=== PATIENT | female | born 1940 ===

== ENCOUNTER 2019-09-28 12:38 | Outpatient (CLI) | payer MEDICARE, SELFPAY ==
--- NOTE | ~2019-09-28 | XR_ITS ---
EXAMINATION: XR lg joint inject/asp w image DATE: 09/28/2019 13:56 INDICATION: Left hip pain. TECHNIQUE: A time-out was performed to verify the patient's name, date of , and procedure to b e performed. The procedure including the risks, benefits, and alternatives was discussed with the pat ient. Risks discussed included bleeding and infection. The patient understood the risks and agreed to proceed. The skin overlying the left hip joint was prepped and draped in usual sterile fashion. An esthetic was administered with 1% lidocaine subcutaneously. A 22 G needle was advanced under fluoros copic guidance into the joint. Injection of 1 mL of Omnipaque 240 confirmed intra-articular position of the needle. Subsequently, injectate consisting of 3 mL 0.25% bupivacaine and 1.5 mL 10 mg/mL [place] alog was instilled. The needle was removed and the entry site was cleaned and dressed. There were n o immediate complications. Fluoroscopy exposure time was 0.1 minutes. The total number of images was 2. FINDINGS: Real-time fluoroscopy demonstrates the needle in the left hip joint. Patient's pain prior t o procedure:02/21. Patient's pain following the procedure: 12/21. IMPRESSION: 1. Left hip joint injection of local anesthetic and steroid with decrease in the patient's presenting pain. Reviewed, dictated and finalized at location A. IMPRESSION: 1. Left hip joint injection of local anesthetic and steroid with decrease in th e patient's presenting pain.
== END 2019-09-28 12:39 | disposition home or self-care (01) ==
PROVIDERS: PCP Internal Medicine; Visit Provider Orthopaedic Surgery
DX: M25.559 Pain in unspecified hip (principal)
CPT/HCPCS: 20610; 77002; J3301; Q9966

== ENCOUNTER 2020-07-17 07:35 | Inpatient (IN) | payer MEDICARE, SELFPAY ==
[2020-07-17 07:38] VITALS: BP 154/77; PULSE 88; RESP 18; TEMP 37.3; O2SAT 100
[2020-07-17 07:42] VITALS: PULSE 88
--- NOTE | 2020-07-17 07:54 | ECG_ITS ---
Measurements Intervals [place] Rate: 87 P: 31 DE: 154 QRS: 7 QRSD: 99 T: 106 QT: 352 QTc: 425 Interpretive Statements SINUS RHYTHM RSR' IN V1 OR V2, CONSIDER RIGHT VENTRICULAR HYPERTROPHY OR RIGHT VCD DELAYED PRECORDIAL R/S TRANSITION BORDERLINE T WAVE ABNORMALITY- ANTEROLAT/HIGH LAT LEADS BORDERLINE ECG Electronically Signed On 07-17-2020 9:00:12 CORPORATE LOGISTICS MANAGER by Percy Esposito D.O.
--- NOTE | 2020-07-17 08:10 | ED.GENADULT ---
HPI - General Adult General Chief complaint: Weakness Stated complaint: black stool weak Source: patient Mode of arrival: ambulatory History of Present Illness HPI narrative: Jesica is a 80F with a PMH of anxiety, BPPV, CVA with left sided paralysis, fibromyalgia, HTN, DMII, DJD and HLD that presented to the ED with 5-7 days of weakness. It started after she had several episodes of vomiting followed by a large episode of melena. She was feeling better but had another episode of melena yesterday. She also reports epigastric abdominal pain, fatigue, and insomnia. No CP, SOB, syncope, diarrhea, dysuria, hematuria or any trauma. Related Data Home Medications Medication Instructions Recorded Confirmed aspirin 81 mg tablet,delayed 81 mg PO DAILY 05/18/19 07/17/20 release folic acid 400 mcg tablet 0.4 mg PO DAILY 05/18/19 07/17/20 mecobalamin (vitamin B12) 1,000 1,000 mcg SUBLINGUAL DAILY 05/18/19 07/17/20 mcg disintegrating tablet,sublingual omega-3 fatty acids 1,000 mg 1,000 mg PO BID 05/18/19 07/17/20 capsule Allergies Allergy/AdvReac Type Severity Reaction Status Date / Time codeine Allergy Unknown n & V Verified 12/28/19 10:38 Penicillins Allergy Unknown rash Verified 12/28/19 10:38 Qehgkwc-Hle-Mco Reductase Allergy Unknown unknown Verified 12/28/19 10:38 Inhibitor Review of Systems Constitutional: Constitutional: Denies chills, Reports fatigue, Denies fever(s) and Reports weakness Eyes: Eyes: Reports no additional eye complaints ENT: Reports system reviewed and no additional complaints, except as documented Cardiovascular: Cardiovascular: Denies chest pain, Denies radiating jaw, neck or arm pain and Denies slow heart rate Respiratory: Respiratory: Reports no additional respiratory complaints, Denies cough and Denies dyspnea Gastrointestinal: Gastrointestinal: Reports as per HPI Genitourinary: Genitourinary: Reports no additional female genitourinary complaints Musculoskeletal: Musculoskeletal: Reports no additional musculoskeletal complaints Integumentary/Breasts: Skin/Breast: Reports system reviewed and no additional complaints, except as docu Neurologic: Reports system reviewed and no additional complaints, except as documented Psychiatric: Psychiatric: Reports no additional psychiatric complaints Endocrine: Endocrine: Reports no additional endocrine complaints Hematologic/Lymphatic: Hematologic/Lymphatic: Reports as per HPI Allergic/Immunologic: Allergic/Immunologic: Reports no additional allergic/immunologic complaints [facility] Past Medical History Medical History (Updated 07/17/20 @ 10:41 by Glenn Oswald DO) Anxiety with depression Benign essential hypertension BMI 34.0-34.9,adult Cervicalgia DJD (degenerative joint disease), multiple sites DM type 2 (diabetes mellitus, type 2) DVT (deep venous thrombosis) Elevated homocysteine Encounter for routine adult health examination without abnormal findings Epiretinal membrane (ERM) of left eye Fibromyalgia Hemiparesis affecting left side as late effect of cerebrovascular accident Hemorrhoids History of blood clots History of CVA with residual deficit History of stroke Hyperlipidemia On halfway drug therapy Oral phase dysphagia Preoperative clearance Vitamin D deficiency Surgical History Surgical History H/O: hysterectomy History of cholecystectomy History of hip replacement S/P right cataract extraction Family History Family History Sibling Family history of heart disease in male family member before age 55 Father Acute myocardial infarction Cerebrovascular accident Unknown Diabetes mellitus Heart disease Hypertension Other Family history of cardiovascular disease Social History Social History Smoking status: Never smoker Alcohol intake: n
[2020-07-17 08:20] LABS: Basophils Absolute Auto 0.01 K/mm3 (0.00-0.10); Basophils Percent Auto 0.1 % (0.0-1.0); Eosinophils Absolute Auto 0.16 K/mm3 (0.02-0.50); Eosinophils Percent Auto 2.1 % (1.0-6.0); Hematocrit 34.2 % (35.0-42.0); Hemoglobin 10.9 g/dL (11.7-13.8); Immature Granulocyte Absolute 0.04 K/mm3 (0.00-0.00); Immature Granulocyte Percent A 0.5 % (0.0-0.0); Lymphocytes Absolute Auto 1.41 K/mm3 (1.10-4.50); Lymphocytes Percent Auto 18.4 % (18.0-42.0); Mean Corpuscular HGB Conc 31.9 g/dL (32.0-36.0); Mean Corpuscular Hemoglobin 30.1 pg (27.0-31.0); Mean Corpuscular Volume 94.5 fL (78.0-102.0); Mean Platelet Volume 9.8 fl (9.2-11.8); Monocytes Absolute Auto 0.44 K/mm3 (0.10-0.90); Monocytes Percent Auto 5.8 % (2.0-11.0); Neutrophils Absolute Auto 5.6 K/mm3 (1.7-7.2); Neutrophils Percent Auto 73.1 % (50.0-70.0); Platelet Count Result 335 K/mm3 (150-420); Red Blood Count 3.62 M/mm3 (4.20-5.40); Red Cell Distribution Width 14.2 % (11.6-14.4); White Blood Count 7.7 K/mm3 (4.8-10.8)
[2020-07-17 08:30] LABS: Occult Blood Positive (Negative)
[2020-07-17 08:33] LABS: Prothrombin Time 10.7 Seconds (9.50-12.10)
[2020-07-17 08:38] LABS: Alanine Aminotransferase 15 U/L (14-59); Albumin Level 2.9 g/dL (3.4-5.0); Alkaline Phosphatase 45 U/L (46-116); Anion Gap 11 mmol/L (8-16); Aspartate Amino Transferase 12 U/L (15-37); Bilirubin,Total 0.4 mg/dL (0.00-1.00); Blood Urea Nitrogen 41 mg/dL (7-18); Calcium 8.2 mg/dL (8.5-10.1); Carbon Dioxide 26 mmol/L (21-32); Chloride 106 mmol/L (98-108); Estimated CRCL calculation 51 ml/min; Estimated Glomerular Filt Rate > 60; Glucose 141 mg/dL (70-99); Lipase 146 U/L (73-393); Osmolality Calculated 308 mOsm/kg (285-295); Sodium 143 mmol/L (136-145); Total Protein 6.4 g/dL (6.4-8.2); Troponin I 5.5 ng/L (0.00-60.4)
[2020-07-17 08:40] LABS: BNP 13.6 pg/mL (0-100)
[2020-07-17 08:41] LABS: CRP 1.7 mg/dL (0.0-0.9); Lactic Acid Reflex 1.3 mmol/L (0.4-2.0)
[2020-07-17] MEDS: PANTOPRAZOLE SODIUM IV 40 MG VIAL 80 MG IV PUSH (09:34)
[2020-07-17] MEDS: LACTATED RINGERS 1,000 ML 999 ML IV CONT (09:35)
--- NOTE | 2020-07-17 09:36 | PC.NURSE ---
0934 RN requested OBS room from Lizz Monroe RN. Room 204 provided. registration notified.
[2020-07-17 09:50] VITALS: BP 114/101; PULSE 97; RESP 15; O2SAT 98
--- NOTE | 2020-07-17 09:56 | PC.NURSE ---
pt transferred to 2nd floor, room 204, with ivf infusing. Please see 2nd floor RNs documentation for ivf stop times.
[2020-07-17 10:21] VITALS: BMI 30.7
--- NOTE | 2020-07-17 10:42 | PC.NURSE ---
1005 here from er for c/o weakness over the 3-7 days with dark stools and lack of appetite. claims had covid screening yesterday for pre surgery on wednesday for hip and is upset with this. claims she does not want him to have but he is determined.hx of cva with residual to l side. 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 claims cva was in 2007. claims last few days she has to really what she eats having trouble swallowing to much food. oriented to room and call light use.
[2020-07-17] MEDS: lisinopriL 10 MG TABLET 20 MG PO ×2 (11:17→17:35)
[2020-07-17 14:00] VITALS: BP 120/76; PULSE 86; RESP 18; TEMP 36.8; O2SAT 98
--- NOTE | 2020-07-17 14:38 | PM.IMHP ---
H&P: HPI History of Present Illness Date/Time: 07/17/20 14:38 Pt being admitted to observation for GI bleeding, Monitoring lab work. <CHANDU Méndez - Last Filed: 07/17/20 15:22> Chief Complaint: Weakness, dark stools <CHANDU Méndez - Last Filed: 07/17/20 15:22> Narrative: Jesica Murphy is a 80 year old female who comes to the hospital after feeling ill for the past week. pt states she had been feeling week and had a few episodes of dark stool. Pt denies any SOB, CP, abdominal pain, vomiting, hemoptysis, urinary symptoms. On plapation of the abdomen Pt states she had some pain on the left side and then stated she did not have any pain when assessing the same spot a second time. <CHANDU Méndez - Last Filed: 07/17/20 15:22> Review of Systems Constitutional: Constitutional: Reports no additional constitutional complaints, Denies body ache(s), Denies chills, Denies fever(s) and Reports weakness <CHANDU Méndez - Last Filed: 07/17/20 15:22> Cardiovascular: Cardiovascular: Reports no additional cardiovascular complaints, Denies chest pain, Denies chest pain at rest and Denies chest pain with activity <CHANDU Méndez - Last Filed: 07/17/20 15:22> Respiratory: Respiratory: Reports no additional respiratory complaints, Denies dyspnea and Denies dyspnea on exertion <CHANDU Méndez - Last Filed: 07/17/20 15:22> Gastrointestinal: Gastrointestinal: Reports no additional gastrointestinal complaints <CHANDU Méndez - Last Filed: 07/17/20 15:22> Genitourinary: Genitourinary: Reports no additional female genitourinary complaints <CHANDU Méndez - Last Filed: 07/17/20 15:22> Musculoskeletal: Musculoskeletal: Reports muscle weakness <CHANDU Méndez - Last Filed: 07/17/20 15:22> [facility] Past Medical History Medical History: Medical History Anxiety with depression Benign essential hypertension BMI 34.0-34.9,adult Cervicalgia DJD (degenerative joint disease), multiple sites DM type 2 (diabetes mellitus, type 2) DVT (deep venous thrombosis) Elevated homocysteine Encounter for routine adult health examination without abnormal findings Epiretinal membrane (ERM) of left eye Fibromyalgia Hemiparesis affecting left side as late effect of cerebrovascular accident Hemorrhoids History of blood clots History of CVA with residual deficit History of stroke Hyperlipidemia On correction drug therapy Oral phase dysphagia Preoperative clearance Vitamin D deficiency <CHANDU Méndez - Last Filed: 07/17/20 15:22> Surgical History Surgical History: Surgical History H/O: hysterectomy History of cholecystectomy History of hip replacement S/P right cataract extraction <CHANDU Méndez - Last Filed: 07/17/20 15:22> Family History Family History: Family History Sibling Family history of heart disease in male family member before age 55 Father Acute myocardial infarction Cerebrovascular accident Unknown Diabetes mellitus Heart disease Hypertension Other Family history of cardiovascular disease <CHANDU Méndez - Last Filed: 07/17/20 15:22> Social History Social History: Social History Smoking status: Never smoker Alcohol intake: never Substance use: never Gender identity (if verbalized by the patient): Female Sexual Orientation (if Verbalized by the Patient): Straight or Heterosexual Spiritual care concerns: Yes <CHANDU Méndez - Last Filed: 07/17/20 15:22> Meds Home Medications and Allergies Home medications: Home Medications Medication Instructions Recorded Confirmed Type aspirin 81 mg tablet,delayed 81 mg PO DAILY 05/18/19 07/17/20 History rel
[2020-07-17 16:00] VITALS: BP 120/70; PULSE 86; RESP 20; TEMP 36.6; O2SAT 97
[2020-07-17] MEDS: ACETAMINOPHEN 325 MG TABLET 650 MG PO (21:02)
--- NOTE | 2020-07-17 22:00 | PC.NURSE ---
Limited assistance for transfers and mobility to commode. Patient denies any c/o stomach pain or discomfort. Continues with IV Protonix. Monitoring.
[2020-07-17 23:48] VITALS: BP 94/65; PULSE 74; RESP 18; TEMP 36; O2SAT 97
--- NOTE | 2020-07-17 23:55 | PC.NURSE ---
Notified Dr. Oswald of pt's blood pressure of 94/65; New orders received and noted.
--- NOTE | 2020-07-18 00:02 | PC.NURSE ---
Vitals assessed, BP 94/65. Patient is responsive and arousable. research and development manager notified.
[2020-07-18] MEDS: LACTATED RINGERS 500 ML IV CONT (00:17)
--- NOTE | 2020-07-18 00:22 | PC.NURSE ---
Healthcare Insurance Sales Agent started 500cc bolus per MD order. Will reassess after completion.
--- NOTE | 2020-07-18 01:30 | PC.NURSE ---
LR 500cc bolus completed and BP reassessed 102/74. Patient is alert and oriented.
[2020-07-18 05:41] LABS: Hematocrit 29.5 % (35.0-42.0); Hemoglobin 9.3 g/dL (11.7-13.8); Mean Corpuscular HGB Conc 31.5 g/dL (32.0-36.0); Mean Corpuscular Volume 95.2 fL (78.0-102.0); Mean Platelet Volume 9.7 fl (9.2-11.8); Platelet Count Result 279 K/mm3 (150-420); Red Cell Distribution Width 14.3 % (11.6-14.4); White Blood Count 4.9 K/mm3 (4.8-10.8)
[2020-07-18 05:57] LABS: Anion Gap 9 mmol/L (8-16); Blood Urea Nitrogen 20 mg/dL (7-18); Calcium 8.1 mg/dL (8.5-10.1); Carbon Dioxide 26 mmol/L (21-32); Chloride 108 mmol/L (98-108); Estimated CRCL calculation 52 ml/min; Estimated Glomerular Filt Rate > 60; Glucose 131 mg/dL (70-99); Osmolality Calculated 300 mOsm/kg (285-295); Sodium 143 mmol/L (136-145)
[2020-07-18 07:20] VITALS: BP 126/80; PULSE 67; RESP 18; TEMP 36.5; O2SAT 98
[2020-07-18] MEDS: lisinopriL 10 MG TABLET 20 MG PO ×2 (08:54→16:47)
[2020-07-18] MEDS: OMEGA 3 POLYUNSAT FATTY ACIDS 1 GM CAP PO ×2 (08:54→16:47)
--- NOTE | 2020-07-18 09:37 | PM.IMPN ---
Progress Note: A&P Assessment and Plan (1) Acute GI bleeding: Code(s): K92.2 - Gastrointestinal hemorrhage, unspecified Status: Acute Assessment and Plan: 07/17/2020 current H/H 10.9/34.2, VSS, 1 liter LR given in ER, Protonix 80 mg IV in ER, monitor H/H, transfuse if Hgb <7, Hold ASA, follow the 80mg Protonix IV administration in the ER with Continuous Protonix drip at 8mg/hr, follow up with PCP/GI post DC, will consider bowel rest if bleeding does not stop and transfer to higher level of care for same. 07/18/2020 current H/H this morning 9.3/29.5 mostly a decrease from yesterday d/t having received 500 ml bolus at around 0200 hours and blood being drawn at about 0500, will continue to monitor, Pt states she has not had a BM during her stay (2) Essential (primary) hypertension: Code(s): I10 - Essential (primary) hypertension Status: Acute Assessment and Plan: 07/17/2020 continue Lisinopril, monitor VS, make adjustments to medications as needed. 07/18/2020 BP a little soft this morning, no changes made to medications at this time, continue to monitor (3) Hyperlipidemia: Qualifiers: Hyperlipidemia type: mixed hyperlipidemia Qualified Code(s): E78.2 - Mixed hyperlipidemia Code(s): E78.5 - Hyperlipidemia, unspecified Status: Acute Assessment and Plan: 07/17/2020 Continue [place]-3 Subjective Date/time seen: 07/18/20 09:37 Pt states she is feeling good. She denies having any stools since being in the hospital. She is eating and drinking without any abdominal complaints. She is not having any dizziness and is able to walk to the restroom and back without difficulty. Pt denies SOB, CP, bloating, constipation, fevers, chills, headache, neurologic issues. Pt was tearful when talking about her going to have surgery tomorrow morning and her thinking she would be going home and the thought of her being all alone at home. Review of Systems Constitutional: Constitutional: Reports no additional constitutional complaints Respiratory: Respiratory: Reports no additional respiratory complaints Gastrointestinal: Gastrointestinal: Reports no additional gastrointestinal complaints Genitourinary: Genitourinary: Reports no additional female genitourinary complaints Musculoskeletal: Musculoskeletal: Reports no additional musculoskeletal complaints Neurologic: Reports system reviewed and no additional complaints, except as documented Exam Const: General: cooperative, comfortable, no acute distress, alert, awake and Physically active Nutritional Appearance: overweight Resp: Effort & Inspection: normal respiratory effort Auscultation: clear to auscultation bilaterally Cardio: Rate: regular rate Rhythm: regular rhythm Heart sounds: S1 normal heart sound present, S2 normal heart sound present, no click, no gallops, no murmurs and no rubs GI: GI Palp: Yes Soft to palpation and No Tenderness to palpation present (GI) Auscultation: normal bowel sounds Neuro: General: oriented to person, oriented to place and oriented to time Cranial nerves: Yes CN's II-XII intact bilaterally (grossly intact) Cognition (Neuro): normal cognition Speech: normal speech Extrem: General: no pedal edema (RODOLFO hose on) Psych: Appearance: grossly normal Mental Status: mental status grossly normal Speech and movement: Normal speech and movement present Affect: normal affect Attitude: cooperative Thought process: Normal thought process present Thought content: Yes Normal thought content present Objective Data Vital Signs Vital Signs: Vital Signs - 24 hr 07/17/20 09:50 07/17/20 14:00 07/17/20 16:00 Temperature 98.3 F 98 F Pulse Rate 97 86 86 Respiratory Rate 15 18 20 Blood Pressure 114/101 H 120/76 120/70 Pulse Oximetry 98 98 97 07/17/20 23:48 07/18/20 07:20 Temperature 96.8 F L 97.7 F Pulse Rate 74 67 Respiratory Rate 18 18 Blood Pressure 94/65 L 126/80 Pulse Oximetry 97 98 Intake/O
--- NOTE | 2020-07-18 13:01 | PC.NURSE ---
Pt status changed to full admit at 1300 per BRIQUETTER OPERATOR order.
[2020-07-18 15:55] VITALS: BP 121/81; PULSE 83; RESP 18; TEMP 36.6; O2SAT 99
[2020-07-18] MEDS: HYDROcodone/acetaminophen (*CRX) 5-325 MG TABLET 1 TAB PO (21:22)
[2020-07-19] VITALS: BP 115/75; PULSE 74; RESP 14; TEMP 36.6; O2SAT 96
[2020-07-19 05:58] LABS: Hematocrit 29.1 % (35.0-42.0); Hemoglobin 9.2 g/dL (11.7-13.8); Mean Corpuscular HGB Conc 31.6 g/dL (32.0-36.0); Mean Corpuscular Volume 94.8 fL (78.0-102.0); Mean Platelet Volume 10.3 fl (9.2-11.8); Platelet Count Result 295 K/mm3 (150-420); Red Blood Count 3.07 M/mm3 (4.20-5.40); Red Cell Distribution Width 14.4 % (11.6-14.4); White Blood Count 6.2 K/mm3 (4.8-10.8)
[2020-07-19 06:08] LABS: Anion Gap 10 mmol/L (8-16); Blood Urea Nitrogen 13 mg/dL (7-18); Calcium 8.3 mg/dL (8.5-10.1); Carbon Dioxide 27 mmol/L (21-32); Chloride 105 mmol/L (98-108); Estimated CRCL calculation 47 ml/min; Estimated Glomerular Filt Rate > 60; Glucose 118 mg/dL (70-99); Osmolality Calculated 295 mOsm/kg (285-295); Potassium 4.2 mmol/L (3.5-5.1); Sodium 142 mmol/L (136-145)
[2020-07-19 07:20] VITALS: BP 116/79; PULSE 76; RESP 18; TEMP 36.4; O2SAT 98
[2020-07-19] MEDS: OMEGA 3 POLYUNSAT FATTY ACIDS 1 GM CAP PO ×2 (08:35→16:44)
[2020-07-19] MEDS: lisinopriL 10 MG TABLET 20 MG PO ×2 (08:35→16:44)
[2020-07-19] MEDS: BISACODYL 5 MG TABLET EC PO (12:06)
--- NOTE | 2020-07-19 12:54 | PM.IMPN ---
Progress Note: A&P Assessment and Plan (1) Acute GI bleeding: Code(s): K92.2 - Gastrointestinal hemorrhage, unspecified Status: Acute Assessment and Plan: 07/17/2020 current H/H 10.9/34.2, VSS, 1 liter LR given in ER, Protonix 80 mg IV in ER, monitor H/H, transfuse if Hgb <7, Hold ASA, follow the 80mg Protonix IV administration in the ER with Continuous Protonix drip at 8mg/hr, follow up with PCP/GI post DC, will consider bowel rest if bleeding does not stop and transfer to higher level of care for same. 07/18/2020 current H/H this morning 9.3/29.5 mostly a decrease from yesterday d/t having received 500 ml bolus at around 0200 hours and blood being drawn at about 0500, will continue to monitor, Pt states she has not had a BM during her stay 07/19/2020 anemia stable 9.2/29.1, continue to monitor, will recheck for occult blood in the stool once patient has a BM, continue with Protonix drip, patient tolerating p.o. food and drink (2) Essential (primary) hypertension: Code(s): I10 - Essential (primary) hypertension Status: Acute Assessment and Plan: 07/17/2020 continue Lisinopril, monitor VS, make adjustments to medications as needed. 07/18/2020 BP a little soft this morning, no changes made to medications at this time, continue to monitor 07/19/2020 continue with medications listed above vital signs are stable at this time no need for changing medications (3) Hyperlipidemia: Qualifiers: Hyperlipidemia type: mixed hyperlipidemia Qualified Code(s): E78.2 - Mixed hyperlipidemia Code(s): E78.5 - Hyperlipidemia, unspecified Status: Acute Assessment and Plan: 07/17/2020 Continue [place]-3 Subjective Date/time seen: 07/19/20 12:54 Patient states that she is feeling good today however admits that she has not had a bowel movement since she has arrived. Patient did request something to help her with having a bowel movement. Denies any abdominal pain, no trouble with breathing, no chest pain, no headaches, no fevers, no chills, no lightheadedness or dizziness. Patient is concerned about going home since she would be alone at home as her just went for a surgical procedure today and there is no one else at home. Review of Systems Constitutional: Constitutional: Reports no additional constitutional complaints, Denies body ache(s), Denies chills, Denies fever(s), Denies headache(s), Denies malaise and Denies weakness Cardiovascular: Cardiovascular: Reports no additional cardiovascular complaints, Denies chest pain, Denies chest pain at rest and Denies chest pain with activity Respiratory: Respiratory: Denies no additional respiratory complaints, Denies dyspnea and Denies dyspnea on exertion Gastrointestinal: Gastrointestinal: Reports no additional gastrointestinal complaints Comments: As noted no BM since arriving 2 days ago Musculoskeletal: Musculoskeletal: Reports no additional musculoskeletal complaints Exam Const: General: cooperative, comfortable, no acute distress, alert, awake and Physically active Nutritional Appearance: overweight Resp: Effort & Inspection: normal respiratory effort Auscultation: clear to auscultation bilaterally Cardio: Rate: regular rate Heart sounds: S1 normal heart sound present, S2 normal heart sound present, no click, no gallops, no murmurs and no rubs GI: GI Palp: Yes Soft to palpation and No Tenderness to palpation present (GI) Auscultation: normal bowel sounds Neuro: General: oriented to person, oriented to place and oriented to time Cranial nerves: Yes CN's II-XII intact bilaterally (grossly intact) Cognition (Neuro): normal cognition Speech: normal speech Extrem: General: no pedal edema Psych: Mental Status: mental status grossly normal Speech and movement: Normal speech and movement present Affect: normal affect Attitude: cooperative Thought process: Normal thought process present Thought content: Yes Normal thought content present Objecti
[2020-07-19 15:45] VITALS: BP 109/79; PULSE 87; RESP 18; TEMP 36.7; O2SAT 98
--- NOTE | 2020-07-19 17:10 | PC.NURSE ---
Report called to Keesha at [facility].
--- NOTE | 2020-07-19 17:45 | PC.NURSE ---
Patient aware she is to be discharged and transferred to [facility] for Therapy program. IV site left in place for transfer. All belongings gathered together and sent with patient. Discharge instructions and education provided to family, packet sent with for receiving facility. Discharge instructions faxed to receiving facility. Son here to transport patient. Patient accompanied to front door via wheelchair, left with son via private vehicle. Denies questions at discharge.
--- NOTE | 2020-07-20 10:35 | PC.NURSE ---
Ethel from [facility] called and claims they did not recieve a list of dc meds. faxed the list as they requested. david ellis
--- NOTE | 2020-07-22 11:19 | PC.NURSE ---
Discharge call back placed to [facility] in [place]. Pt was transferred out from there this am for an acute problem.
--- NOTE | 2020-07-23 02:28 | P.DS_ITS ---
DS: Admitting Diagnosis Admitting Diagnosis Admitting Diagnosis: Lower GI bleeding, generalized weakness DS: Discharge Diagnosis Discharge Diagnosis (1) Acute GI bleeding: Code(s): K92.2 - Gastrointestinal hemorrhage, unspecified Status: Acute DS: Summary Hospital Course Hospital Course: The patient was admitted and started on protonix IV. She was later switched to protonx 40mg bid and no further melena while she was here. Time Spent with Patient Time attestation: Total time spent providing and/or coordinating discharge services: greater than 30 minutes Exam Const: General: no acute distress HENMT: General nose exam: Normal nares present Eyes: General: appearance normal, both eyes and all related structures Neck: Neck: supple and no JVD Resp: Auscultation: clear to auscultation bilaterally Cardio: Rate: regular rate Rhythm: regular rhythm GI: GI Palp: Yes Soft to palpation (non tender) Skin: General skin exam: normal color Neuro: General: gait normal Extrem: General: normal to inspection Psych: Appearance: grossly normal Mental Status: mental status grossly normal Speech and movement: Normal speech and movement present Thought content: Yes Normal thought content present DS: Data Data Completed and Pending Pending studies at discharge: Various lab studies. 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 Patient Instructions: Lisinopril (By mouth), Gastrointestinal Bleeding (DC), Fall Prevention for Older Adults (DC) Stand Alone Forms: General Discharge Information Discharge Medications: New pantoprazole 40 mg Tablet,Delayed Release (Dr/Ec) 40 mg PO Q12HR Qty: 30 RF: 0 Continued lisinopril 20 mg tablet 20 mg PO BID Qty: 180 RF: 3 aspirin [Adult Low Dose Aspirin] 81 mg tablet,delayed release (DR/EC) 81 mg PO DAILY RF: 0 omega-3 fatty acids [Fish Oil Concentrate] 1,000 mg capsule 1,000 mg PO BID RF: 0 mecobalamin (vitamin B12) 1,000 mcg tablet,disintegrating 1,000 mcg SUBLINGUAL DAILY RF: 0 folic acid 400 mcg tablet 0.4 mg PO DAILY RF: 0 cholecalciferol (vitamin D3) 125 mcg (5,000 unit) capsule 125 mcg PO DAILY Qty: 30 RF: 0 Date of admission: 07/18/20 12:48 Primary Care Provider: Glynn Jernigan Admitting Provider: Glenn Oswald Attending physician on admission: Glenn Oswald Condition: Stable Quality VTE Prophylaxis VTE prophylaxis: mechanical ordered (RODOLFO Hose) and pharmacologic ordered (Lovenox)
== END 2020-07-19 17:45 | DRG 378 ==
LOC: CHSED 08:50 → CHS2ND 09:40
PROVIDERS: Nurse Practitioner Family; Admitting Provider Family Medicine; Emergency Provider Family Medicine; PCP Internal Medicine; Visit Provider Family Medicine
DX: K92.2 Gastrointestinal hemorrhage, unspecified (principal); I69.354 Hemiplegia and hemiparesis following cerebral infarction affecting left non-dominant side; I10 Essential (primary) hypertension; E55.9 Vitamin D deficiency, unspecified; E11.9 Type 2 diabetes mellitus without complications; E78.5 Hyperlipidemia, unspecified; M15.9 Polyosteoarthritis, unspecified; M79.7 Fibromyalgia; R13.11 Dysphagia, oral phase; F32.9 Major depressive disorder, single episode, unspecified; F41.9 Anxiety disorder, unspecified; Z96.649 Presence of unspecified artificial hip joint; Z86.718 Personal history of other venous thrombosis and embolism; Z90.710 Acquired absence of both cervix and uterus; Z90.49 Acquired absence of other specified parts of digestive tract
CPT/HCPCS: 36415; 80048; 80053; 82272; 83605; 83690; 83880; 84484; 85025; 85027; 85610; 86140; 88321; 93005; 96361; 96365; 96366; 96375; 97110; 97161; 97530; 99285; A9270; C9113; G0378; J0696; J7060; J7120

== ENCOUNTER 2020-12-27 11:44 | Outpatient (CLI) | payer MEDICARE, SELFPAY ==
[2020-12-27 12:10] LABS: Add Urine Microscopic? NO; Appearance Urine Clear (Clear); Bilirubin Urine Negative (Negative); Blood Urine Negative (Negative); Color Urine Straw (Yellow); Glucose Urine UA Negative (Negative); Ketones Urine Negative (Negative); Leukocyte Esterase Ur Negative LEU/UL (Negative); Nitrate Urine Negative (Negative); Protein Urine Negative (Negative); Urobilinogen Urine Negative mg/dL (<2.0)
== END 2020-12-27 11:45 | disposition home or self-care (01) ==
LOC: ANHLAB 11:46
PROVIDERS: PCP Internal Medicine; Visit Provider Nurse Practitioner
DX: R35.0 Frequency of micturition (principal)
CPT/HCPCS: 81003